=== PATIENT | female | born 1950 | race African-American/Black ===

== ENCOUNTER 2016-07-11 13:10 | Inpatient (IN) | payer OTHER ==
--- NOTE | 2016-07-11 13:26 | PDOC ---
History of Present Illness - General Stated Complaint: ABD PIN Time Seen by Provider: 07/11/16 13:25 - History of Present Illness Initial Comments: 07/11/16 14:08 The pt is a 65 year old female with a PMH of HIV, gastritis, renal stones who presents to ED complaining of severe abdominal pain that started an hour ago. The pain started suddenly when pt wa cleaning the house, it is located in epigastrium, 10/10, no radiation, no alleviating/aggravating symptoms. She also is complaining of nausea and weakness since her pain started. The pt had 2 BM today, non bloody. She denies chest pain, SOB, pain in the back, cough, fever, chills. She denies problems with urination, dysuria, increased frwquency, urgency. She denies numbness, paresthesia, headache. Past History - Past Medical History Allergies/Adverse Reactions: Allergies Allergy/AdvReac Type Severity Reaction Status Date / Time No Known Allergies Allergy Verified 07/11/16 13:56 Home Medications: Ambulatory Orders Elviteg/Sarah/Emtric/Tenofo Ala [Genvoya Tablet] 1 each PO DAILY 07/11/16 Gabapentin [Neurontin -] 300 mg PO Q8H 07/11/16 Losartan/Hydrochlorothiazide [Losartan-Hctz 100-25 mg Tab] 1 each PO DAILY 07/11 Non-Formulary 100 mg PO TID 07/11/16 Omeprazole 40 mg PO DAILY 07/11/16 Zolpidem Tartrate [Ambien] 10 mg PO HS 07/11/16 Review of Systems - Review of Systems Able to Perform ROS?: Yes Comments:: 07/11/16 14:14 REVIEW OF SYSTEMS CONSTITUTIONAL: generalized weakness Absent: fever, chills, diaphoresis, malaise, loss of appetite, weight change HEENT: Absent: rhinorrhea, nasal congestion, throat pain, throat swelling, difficulty swallowing, mouth swelling, ear pain, eye pain, visual changes CARDIOVASCULAR: Absent: chest pain, syncope, palpitations, irregular heart rate, lightheadedness , peripheral edema RESPIRATORY: Absent: cough, shortness of breath, dyspnea with exertion, orthopnea, wheezing, stridor, hemoptysis GASTROINTESTINAL: abdominal pain and nausea Absent: abdominal distension, vomiting, diarrhea, constipation, melena, hematochezia GENITOURINARY: Absent: dysuria, frequency, urgency, hesitancy, hematuria, flank pain, genital pain MUSCULOSKELETAL: Absent: myalgia, arthralgia, joint swelling, back pain, neck pain SKIN: Absent: rash, itching, pallor NEUROLOGIC: Absent: headache, focal weakness or paresthesias, dizziness, unsteady gait, seizure, mental status changes, bladder or bowel incontinence PSYCHIATRIC: Absent: anxiety, depression 07/11/16 14:15 Is the patient limited Liberian proficient: No ED Treatment Course - LABORATORY CBC & Chemistry Diagram: 07/11/16 13:30 07/11/16 13:30 Medical Decision Making - Medical Decision Making 07/11/16 14:15 The pt presents to Ed complaining of severe epigastric pain. Differential diagnosis include gastritis, gastric/duodenal ulcer, perforation of gastric ulcer, ACS, pancreatitis, colitis, aortic dissection. We ordered Morphine, f/u by Dilaulid, CBC, CMP, AKG, cardiac profile, Pepsid, LA , blood cx, UA, lipase, abdomen x ray 07/11/16 17:17 LA, Cr, BUN are elevated, she was given more Dilaulid. CXR and abd xry no acute pathology. We ordered CTA of abdomen/pelvis with contrast. The pt is still complaining of severe abdominal pain. *DC/Admit/Observation/Transfer Diagnosis at time of Disposition: Abdominal pain
[2016-07-11] MEDS ORDERED: FAMOTIDINE 20 MG/50 ML IVPB 50 ML IVPB ONE (13:38)
[2016-07-11] MEDS ORDERED: SODIUM CHLORIDE 1,000 ML IV STA (13:38)
[2016-07-11] MEDS ORDERED: morphine CARPU-JECT 4 MG/1 ML DISP.SYRIN IVPUSH ONE (13:47)
[2016-07-11 13:49] LABS: BASOPHIL 0.6 % (0-2.0); EOSINOPHIL 1.3 % (0-4.5); MCH 31.3 pg (25.7-33.7); MEAN CELL VOLUME 94.7 fl (80-96); MEAN PLT VOLUME 10.4 fl (7.5-11.1); NEUTROPHILS 50.3 % (42.8-82.8); PLATELET COUNT 95 K/MM3 (134-434); RDW 13.9 % (11.6-15.6); WHITE BLOOD COUNT 6.7 K/mm3 (4.0-10.0)
[2016-07-11] MEDS ORDERED: HYDROmorphone HCL CARPU-JECT 1 MG/1 ML DISP.SYRIN IVPB ONE ×2 (14:05→18:29)
--- NOTE | 2016-07-11 14:07 | PDOC ---
Attending Attestation - Resident Resident Name: Josiane Gutierrez - ED Attending Attestation I have performed the following: I have examined & evaluated the patient, The case was reviewed & discussed with the resident, I agree w/resident's findings & plan - HPI HPI: 07/11/16 14:08 65y F hx of HIV, HTN, presents with complaint of sudden onset of abdominal pain about 1 hr ago associated with nausea, without any vomiting, fever/chills, diarrhea, chest pain, sob, numbness/tingling of the extremity. no radaition of pain to back or to extremities. on exam the pt apperas uncomfortable, has mild epigastric tenderness, rest of abdomen is soft. consider possible acs, pancreatitis, gb disease, ?vascuar disease due to sudden onset including dissection, mesenteric ischemia 07/11/16 16:08 labs reviewed noted for elevated lactic acid level cr slightly elevated, possibel dehydration pt hydrated will obtain CTA abdomen to r/o mesentaeric ischemia/dissection ekg does show some TWI in lateral leads, q aves in V1, V2 trop pending - Physicial Exam PE: 07/16/16 09:10 see above - Medical Decision Making 07/16/16 09:10 see above Heart Score/ECG Review - ECG Impressions Comment:: 07/11/16 17:25 Twelve-lead EKG was performed and reviewed by me. There is normal sinus rhythm with a normal rate. Rate of 76 The intervals are normal. There is normal R wave progression TWI in ther lateral leads q waves in anterior leads no old ekg for comparison
[2016-07-11] MEDS ORDERED: HYDROmorphone HCL CARPU-JECT 1 MG/1 ML DISP.SYRIN ONE ×3 (14:08→18:31)
[2016-07-11 14:19] LABS: ALBUMIN 3.3 g/dl (3.4-5.0); ANION GAP 11 (8-16); CALCIUM 8.5 mg/dL (8.5-10.1); CO2 25 mmol/L (21-32); GLUCOSE,RANDOM 186 mg/dL (74-106)
[2016-07-11 14:23] LABS: ALK PHOS 101 U/L (45-117); BILIRUBIN,TOTAL 0.6 mg/dL (0.2-1.0); CREATININE 1.1 mg/dL (0.55-1.02); SGOT/AST 25 U/L (15-37); SGPT/ALT 19 U/L (12-78); TOT PROT 7.5 g/dl (6.4-8.2)
[2016-07-11 15:20] LABS: URINE APPEARANCE CLEAR; URINE BILIRUBIN NEGATIVE (NEGATIVE); URINE COLOR STRAW; URINE GLUCOSE (UA) 2+ (NEGATIVE); URINE KETONE NEGATIVE (NEGATIVE); URINE LEUK ESTERASE NEGATIVE (NEGATIVE); URINE NITRITE NEGATIVE (NEGATIVE); URINE PROTEIN NEGATIVE (NEGATIVE); URINE UROBILINOGEN NEGATIVE E.U./dl (0.2-1.0)
[2016-07-11 15:30] LABS: URINE BLOOD 1+ (NEGATIVE)
[2016-07-11 15:33] LABS: URINE HYALINE CAST 1 /lpf; URINE RBC 3 /hpf (0-3); URINE WBC <1 /hpf (3-5)
--- NOTE | 2016-07-11 15:35 | EKG ---
Test Reason : Blood Pressure : / mmHG Vent. Rate : 076 BPM Atrial Rate : 076 BPM P-R Int : 184 ms QRS Dur : 080 ms QT Int : 416 ms P-R-T Axes : 083 011 182 degrees QTc Int : 468 ms POOR DATA QUALITY, INTERPRETATION MAY BE ADVERSELY AFFECTED NORMAL SINUS RHYTHM POSSIBLE LEFT ATRIAL ENLARGEMENT SEPTAL INFARCT , AGE UNDETERMINED ABNORMAL ECG NO PREVIOUS ECGS AVAILABLE Confirmed by STANLEY PURDY, DIANA ([id number]) on 07/11/2016 3:35:04 PM Referred By: Confirmed By:DIANA ANGEL MD
[2016-07-11] MEDS ORDERED: HYDROmorphone HCL CARPU-JECT 2 MG/1 ML DISP.SYRIN IVPUSH ONE (16:21)
[2016-07-11 17:54] LABS: TROPONIN I < 0.02 ng/ml (0.00-0.05)
[2016-07-11] MEDS ORDERED: PIPERACILLIN/TAZOB 3.375 GM/50 ML PRE-DOCKED IVPB ONE (21:04)
[2016-07-11] MEDS ORDERED: PIPERACILLIN/TAZOB 3.375 GM 50 ML IVPB ONE (21:32)
--- NOTE | 2016-07-11 21:34 | PDOC ---
*Physical Exam - Vital Signs Last Vital Signs Temp Pulse Resp BP Pulse Ox 97.3 F L 79 19 167/101 96 07/11/16 15:33 07/11/16 18:35 07/11/16 18:35 07/11/16 18:35 07/11/16 18:35 ED Treatment Course - LABORATORY CBC & Chemistry Diagram: 07/11/16 13:30 07/11/16 13:30 - ADDITIONAL ORDERS Additional order review: Laboratory Results 07/11/16 07/11/16 07/11/16 15:43 15:32 15:10 Sodium Potassium Chloride Carbon Dioxide Anion Gap BUN Creatinine Creat Clearance w eGFR Random Glucose Lactic Acid 2.325 H* Calcium Total Bilirubin AST ALT Alkaline Phosphatase Creatine Kinase Cancelled CK-MB (CK-2) Troponin I Cancelled Total Protein Albumin Lipase Urine Color Straw Urine Appearance Clear Urine pH 7.0 Ur Specific [place] 1.013 Urine Protein Negative Urine Glucose (UA) 2+ H Urine Ketones Negative Urine Blood 1+ H Urine Nitrite Negative Urine Bilirubin Negative Urine Urobilinogen Negative Ur Leukocyte Esterase Negative Urine RBC 3 Urine WBC <1 Ur Epithelial Cells Rare Hyaline Casts 1 07/11/16 07/11/16 14:00 13:30 Sodium 142 Potassium 3.6 Chloride 106 Carbon Dioxide 25 Anion Gap 11 BUN 22 H Creatinine 1.1 H Creat Clearance w eGFR 50.01 Random Glucose 186 H Lactic Acid 2.257 H* Calcium 8.5 Total Bilirubin 0.6 AST 25 ALT 19 Alkaline Phosphatase 101 Creatine Kinase 275 H CK-MB (CK-2) 1.519 Troponin I < 0.02 Total Protein 7.5 Albumin 3.3 L Lipase 173 Urine Color Urine Appearance Urine pH Ur Specific [place] Urine Protein Urine Glucose (UA) Urine Ketones Urine Blood Urine Nitrite Urine Bilirubin Urine Urobilinogen Ur Leukocyte Esterase Urine RBC Urine WBC Ur Epithelial Cells Hyaline Casts 07/11/16 13:30 RBC 4.56 MCV 94.7 MCHC 33.0 RDW 13.9 MPV 10.4 Neutrophils % 50.3 Lymphocytes % 36.6 Monocytes % 11.2 H Eosinophils % 1.3 Basophils % 0.6 - Medications Given in the ED: ED Medications Discontinued Medications Generic Name Dose Route Start Last Admin Trade Name Freq PRN Reason Stop Dose Admin Diphenhydramine HCl 25 mg 07/11/16 20:17 07/11/16 20:35 Benadryl Injection - IVPB 07/11/16 20:18 25 mg ONCE ONE Administration Hydromorphone HCl 1 mg 07/11/16 14:05 07/11/16 14:14 Dilaudid Injection - IVPB 07/11/16 14:06 1 mg ONCE ONE Administration Hydromorphone HCl 1 mg 07/11/16 16:21 07/11/16 16:25 Dilaudid Injection - IVPUSH 07/11/16 16:22 1 mg ONCE ONE Administration Hydromorphone HCl 1 mg 07/11/16 18:29 07/11/16 18:35 Dilaudid Injection - IVPB 07/11/16 18:30 1 mg ONCE ONE Administration Famotidine/Sodium Chloride 50 mls @ 100 mls/hr 07/11/16 13:38 07/11/16 14:00 Pepcid 20 Mg Premixed Ivpb - IVPB 07/11/16 14:07 100 mls/hr ONCE ONE Administration Sodium Chloride 1,000 mls @ 1,000 mls/hr 07/11/16 13:38 07/11/16 14:00 Normal Saline - IV 07/11/16 14:37 1,000 mls/hr ASDIR STA Administration Morphine Sulfate 4 mg 07/11/16 13:47 07/11/16 13:40 Morphine Injection - IVPUSH 07/11/16 13:48 4 mg ONCE ONE Administration Medical Decision Making - Medical Decision Making 07/11/16 21:33 Sign-out received from outgoing Emergency Physician Dr. Burgess Pt interviewed and examined Ancillary studies reviewed Case discussed in detail with oncoming Emergency Physician including history, physical exam and ancillary studies. CBC, BMP 07/11/16 13:30 07/11/16 13:30 CMP Sodium 142 mmol/L (136-145) 07/11/16 13:30 Potassium 3.6 mmol/L (3.5-5.1) 07/11/16 13:30 Chloride 106 mmol/L (98-107) 07/11/16 13:30 Carbon Dioxide 25 mmol/L (21-32) 07/11/16 13:30 Anion Gap 11 (8-16) 07/11/16 13:30 BUN 22 mg/dL (7-18) H 07/11/16 13:30 Creatinine 1.1 mg/dL (0.55-1.02) H 07/11/16 13:30 Creat Clearance w eGFR 50.01 (>60) 07/11/16 13:30 Random Glucose 186 mg/dL (74-106) H 07/11/16 13:30 Lactic Acid 2.325 mmol/L (0.4-2.0) H* 07/11/16 15:32 Calcium 8.5 mg/dL (8.5-10.1) 07/11/16 13:30 Total Bilirubin 0.6 mg/dL (0.2-1.0) 07/11/16 13:30 AST 25 U/L (15-37) 07/11/16 13:30 ALT 19 U/L (12-78) 07/11/16 13:30 Alkaline Phosphatase 101 U/L (45-117) 07/11/16 13:30 Creatine Kinase Cancelled 07/11/16 15:43 CK-MB (CK-2) 1.519 ng/ml (0.5-3.6) 07/11/16 13:30 Troponin I Cancelled 07/11/16 15:43 Total Protein 7.5 g/dl (6.4-8.2) 07/11/16 13:30 Albumin 3.3 g/dl (3.4-5.0) L 07/11/16 13:30 Lipase 173 U/L (73-393) 07/11/16 13:30 CT scan demonstrates acute cholecystitis. Zosyn ordered. Case discussed with Dr. Talbot. Accepts to med/surg admission. Case discussed in detail with admitting physician including history, physical exam and ancillary studies. Admitting physician has assumed care for the patient, will follow all pending diagnostics and will complete the evaluation and treatment. *DC/Admit/Observation/Transfer Diagnosis at time of Disposition: Acute cholecystitis - Discharge Dispostion Condition at time of disposition: Stable Admit: Yes
[2016-07-11] MEDS ORDERED: HYDROmorphone HCL CARPU-JECT 2 MG/1 ML DISP.SYRIN IVPB PRN (21:59)
[2016-07-11] MEDS ORDERED: ONDANSETRON 4 MG/2 ML VIAL IVPB PRN (23:01)
[2016-07-11] MEDS ORDERED: hydrALAZINE HCL 20 MG/ML VIAL IVPUSH PRN (23:11)
[2016-07-11] MEDS ORDERED: DEXTROSE 5%-NORMAL SALINE 1,000 ML IV SCH (23:15)
--- NOTE | 2016-07-11 23:17 | HP ---
<Shanita Fong - Last Filed: 07/11/16 23:38> CHIEF COMPLAINT: Abdominal pain PCP:-- HISTORY OF PRESENT ILLNESS: The patient is a 65 year old female who presents to the ED with CC of abdominal pain, 8/10 in intensity,localized to the epigastric area, constant, that began around 1 pm today. Patient appears to be in severe pain and history is obtained partially from son. Patient denies any prior episodes of abdominal pain before. Patient denies n, v, or diarrhea, fever. Patient denies taking any medication for pain relief. PMH: HIV, Peripheral neuropathy, HTN PSH: hysterectomy Allergies: None Social hx: Lives at home, denies any toxic habits Fam Hx: No hx of CAD or cancer Recent Travel: None Allergies No Known Allergies Allergy (Verified 07/11/16 13:56) HOME MEDICATIONS: Home Medications Medication Instructions Recorded Elviteg/Sarah/Emtric/Tenofo Ala 1 each PO DAILY 07/11/16 [Genvoya Tablet] Gabapentin [Neurontin -] 300 mg PO Q8H 07/11/16 Losartan/Hydrochlorothiazide 1 each PO DAILY 07/11/16 [Losartan-Hctz 100-25 mg Tab] Non-Formulary 100 mg PO TID 07/11/16 Omeprazole 40 mg PO DAILY 07/11/16 Zolpidem Tartrate [Ambien] 10 mg PO HS 07/11/16 REVIEW OF SYSTEMS CONSTITUTIONAL: Absent: fever, chills, diaphoresis, generalized weakness, malaise, loss of appetite, weight change HEENT: Absent: rhinorrhea, nasal congestion, throat pain, throat swelling, difficulty swallowing, mouth swelling, ear pain, eye pain, visual changes CARDIOVASCULAR: Absent: chest pain, syncope, palpitations, irregular heart rate, lightheadedness , peripheral edema RESPIRATORY: Absent: cough, shortness of breath, dyspnea with exertion, orthopnea, wheezing, stridor, hemoptysis GASTROINTESTINAL: +abdominal pain. Absent: abdominal distension, nausea, vomiting, diarrhea, constipation, melena, hematochezia GENITOURINARY: Absent: dysuria, frequency, urgency, hesitancy, hematuria, flank pain, genital pain MUSCULOSKELETAL: Absent: myalgia, arthralgia, joint swelling, back pain, neck pain SKIN: Absent: rash, itching, pallor HEMATOLOGIC/IMMUNOLOGIC: Absent: easy bleeding, easy bruising, lymphadenopathy, frequent infections ENDOCRINE: Absent: unexplained weight gain, unexplained weight loss, heat intolerance, cold intolerance NEUROLOGIC: Absent: headache, focal weakness or paresthesias, dizziness, unsteady gait, seizure, mental status changes, bladder or bowel incontinence PSYCHIATRIC: Absent: anxiety, depression, suicidal or homicidal ideation, hallucinations. Laboratory Results - last 24 hr 07/11/16 07/11/16 07/11/16 13:30 13:30 14:00 WBC 6.7 RBC 4.56 Hgb 14.2 Hct 43.1 MCV 94.7 MCHC 33.0 RDW 13.9 Plt Count 95 L MPV 10.4 Neutrophils % 50.3 Lymphocytes % 36.6 Monocytes % 11.2 H Eosinophils % 1.3 Basophils % 0.6 Sodium 142 Potassium 3.6 Chloride 106 Carbon Dioxide 25 Anion Gap 11 BUN 22 H Creatinine 1.1 H Creat Clearance w eGFR 50.01 Random Glucose 186 H Lactic Acid 2.257 H* Calcium 8.5 Total Bilirubin 0.6 AST 25 ALT 19 Alkaline Phosphatase 101 Creatine Kinase 275 H CK-MB (CK-2) 1.519 Troponin I < 0.02 Total Protein 7.5 Albumin 3.3 L Lipase 173 Urine Color Urine Appearance Urine pH Ur Specific [place] Urine Protein Urine Glucose (UA) Urine Ketones Urine Blood Urine Nitrite Urine Bilirubin Urine Urobilinogen Ur Leukocyte Esterase Urine RBC Urine WBC Ur Epithelial Cells Hyaline Casts 07/11/16 07/11/16 07/11/16 15:10 15:32 15:43 WBC RBC Hgb Hct MCV MCHC RDW Plt Count MPV Neutrophils % Lymphocytes % Monocytes % Eosinophils % Basophils % Sodium Potassium Chloride Carbon Dioxide Anion Gap BUN Creatinine Creat Clearance w eGFR Random Glucose Lactic Acid 2.325 H* Calcium Total Bilirubin AST ALT Alkaline Phosphatase Creatine Kinase Cancelled CK-MB (CK-2) Troponin I Cancelled Total Protein Albumin Lipase Urine Color Straw Urine Appearance Clear Urine pH 7.0 Ur Specific [place] 1.013 Urine Protein Negative Urine Glucose (UA) 2+ H Urine Ketones Negative Urine Blood 1+ H Urine Nitrite Negative Urine Bilirubin Negative Urine Urobilinogen Negative Ur Leukocyte Esterase Negative Urine RBC 3 Urine WBC <1 Ur Epithelial Cells Rare Hyaline Casts 1 PHYSICAL EXAMINATION GENERAL: Awake, alert, and fully oriented, in no acute distress. HEAD: Normal with no signs of trauma. EYES: Pupils equal, round and reactive to light, extraocular movements intact, sclera anicteric, conjunctiva clear. No lid lag. EARS, NOSE, THROAT: Ears normal, nares patent, oropharynx clear without exudates. Moist mucous membranes. NECK: Normal range of motion, supple without lymphadenopathy, JVD, or masses. LUNGS: Breath sounds equal, clear to auscultation bilaterally. No wheezes, and no crackles. No accessory muscle use. HEART: Regular rate and rhythm, normal S1 and S2 without murmur, rub or gallop. ABDOMEN: Soft, nontender, not distended, normoactive bowel sounds, no guarding, no rebound, no masses. No hepatomegaly or splenomegaly. MUSCULOSKELETAL: Normal range of motion at all joints. No bony deformities or tenderness. No CVA tenderness. UPPER EXTREMITIES: 2+ pulses, warm, well-perfused. No cyanosis. No clubbing. No peripheral edema. LOWER EXTREMITIES: 2+ pulses, warm, well-perfused. No calf tenderness. No peripheral edema. NEUROLOGICAL: Cranial nerves II-XII intact. Normal speech. Normal gait. PSYCHIATRIC: Cooperative. Good eye contact. Appropriate mood and affect. SKIN: Warm, dry, normal turgor, no rashes or lesions noted, normal capillary refill. PROBLEM LIST: Abdominal pain Radiologic evidence of acute cholecystitis Prerenal azotemia Elevated lactic acid levels Thrombocytopenia Hx of HIV Hx of HTN ASSESSMENT/PLAN: 65 yo F who presents to the ED complaining of abdominal pain. 1.) Abdominal pain and CT evidence of acute cholecystitis. Patient is hemodynamically stable with no signs of sepsis(lactic acid elevation is most likely attributed to antiretroviral medications). Plan: -IV fluids -Pain control with IV Dilaudid PRN -NPO -IV antibiotics -Surgical evaluation for possible cholecystecomy -Follow up official CT scan report 2.) HX of HIV Stable with most recent undetectable viral load as per family Plan: - Continue Genvoya 3.) HTN Uncontrolled, partially secondary to severe pain. Plan: - Hydralazine PRN - Will reinstate oral medications when diet is restarted 4.) GI PPx Plan: -IV pepcid 5.)DVT PPx Plan: -early ambulation and SCDs Documentation prepared by Shanita Fong, acting as medical legal investigator for Claudia Talbot MD. Problem List - Problem (1) Acute cholecystitis Code(s): K81.0 - ACUTE CHOLECYSTITIS (2) Abdominal pain Code(s): R10.9 - UNSPECIFIED ABDOMINAL PAIN (3) Prerenal azotemia Code(s): R79.89 - OTHER SPECIFIED ABNORMAL FINDINGS OF BLOOD CHEMISTRY (4) Elevated lactic acid level Code(s): R79.89 - OTHER SPECIFIED ABNORMAL FINDINGS OF BLOOD CHEMISTRY (5) Thrombocytopenia Code(s): D69.6 - THROMBOCYTOPENIA, UNSPECIFIED (6) HIV (human immunodeficiency virus infection) Code(s): Z21 - ASYMPTOMATIC HUMAN IMMUNODEFICIENCY VIRUS INFECTION STATUS (7) HTN (hypertension) Code(s): I10 - ESSENTIAL (PRIMARY) HYPERTENSION <Claudia Talbot - Last Filed: 07/12/16 06:24> Physical exam HEENT PERRLA, normocephalic, atraumatic CVS S1 S2 + , no MRG , RRR RS CTA b/l Abd soft, RUQ and epigastric tenderness SKIN dry , normal turgor WNL EXT no edema , no clubbing , no cyanosis Visit type - Emergency Visit Emergency Visit: Yes ED Registration Date: 07/11/16 Care time: The patient presented to the Emergency Department on the above date and was hospitalized for further evaluation of their emergent condition. - New Patient This patient is new to me today: Yes Date on this admission: 07/12/16 - Critical Care Critical Care patient: No
[2016-07-11] MEDS: GABAPENTIN 300 MG CAPSULE (FP) PO SCH (23:27)
[2016-07-12] MEDS ORDERED: PIPERACILLIN/TAZOB 3.375 GM/50 ML PRE-DOCKED IVPB ONE (02:00)
[2016-07-12] MEDS: GABAPENTIN 300 MG CAPSULE (FP) PO SCH ×3 (06:45→21:18)
[2016-07-12 08:49] LABS: BASOPHIL 0.4 % (0-2.0); EOSINOPHIL 0.4 % (0-4.5); MCH 31.2 pg (25.7-33.7); MEAN CELL VOLUME 94.5 fl (80-96); MEAN PLT VOLUME 10.2 fl (7.5-11.1); NEUTROPHILS 66.7 % (42.8-82.8); PLATELET COUNT 91 K/MM3 (134-434); RDW 13.6 % (11.6-15.6); WHITE BLOOD COUNT 7.6 K/mm3 (4.0-10.0)
[2016-07-12 09:00] LABS: ALBUMIN 3.2 g/dl (3.4-5.0); AMYLASE 215 U/L (25-115); ANION GAP 11 (8-16); CALCIUM 7.8 mg/dL (8.5-10.1); CO2 25 mmol/L (21-32); GLUCOSE,RANDOM 121 mg/dL (74-106); SGOT/AST 18 U/L (15-37); SGPT/ALT 20 U/L (12-78)
[2016-07-12] MEDS ORDERED: PIPERACILLIN/TAZOB 3.375 GM 50 ML IVPB ONE (09:00)
[2016-07-12 09:02] LABS: ALK PHOS 87 U/L (45-117); BILIRUBIN,TOTAL 0.6 mg/dL (0.2-1.0); TOT PROT 7.2 g/dl (6.4-8.2)
--- NOTE | 2016-07-12 10:27 | CONSULT ---
Consult Consult Specialty:: Surgery Referred by:: HospitalistAntione Reason for Consultation:: Abdominal pain , cholelithiasis. - History of Present Illness Chief Complaint: Epigastric abdominal pain since yesterday, severe ,not relieved. She has had similar pain in the past, but not so severe. - History Source History Provided By: Patient - Past Medical History Cardio/Vascular: Yes: HTN Infectious Disease: Yes: AIDS, HIV - Past Surgical History Past Surgical History: Yes: Hysterectomy - Alcohol/Substance Use Hx Alcohol Use: No - Smoking History Smoking history: Current every day smoker Aproximately how many cigarettes per day: 2 Home Medications - Allergies Allergies/Adverse Reactions: Allergies Allergy/AdvReac Type Severity Reaction Status Date / Time No Known Allergies Allergy Verified 07/11/16 13:56 - Home Medications Home Medications: Ambulatory Orders Elviteg/Sarah/Emtric/Tenofo Ala [Genvoya Tablet] 1 each PO DAILY 07/11/16 Gabapentin [Neurontin -] 300 mg PO Q8H 07/11/16 Losartan/Hydrochlorothiazide [Losartan-Hctz 100-25 mg Tab] 1 each PO DAILY 07/11 Non-Formulary 100 mg PO TID 07/11/16 Omeprazole 40 mg PO DAILY 07/11/16 Zolpidem Tartrate [Ambien] 10 mg PO HS 07/11/16 Physical Exam Vital Signs: Vital Signs Temperature 98.9 F 07/12/16 06:00 Pulse Rate 75 07/12/16 06:00 Respiratory Rate 20 07/12/16 06:00 Blood Pressure 131/78 07/12/16 06:00 O2 Sat by Pulse Oximetry (%) 97 07/12/16 02:28 Constitutional: Yes: Obese Gastrointestinal: Yes: Tenderness, Epigastrium Labs: CBC, BMP 07/12/16 08:05 07/12/16 08:05 Imaging - Results X-ray: Report Reviewed, Image Reviewed Cat Scan: Report Reviewed, Image Reviewed Problem List - Problems (1) Abdominal pain, acute, epigastric Code(s): R10.13 - EPIGASTRIC PAIN (2) Cholelithiasis Code(s): K80.20 - CALCULUS OF GALLBLADDER W/O CHOLECYSTITIS W/O OBSTRUCTION Qualifiers: Cholelithiasis location: gallbladder Cholecystitis acuity: acute Biliary obstruction: without biliary obstruction (3) HTN (hypertension) Code(s): I10 - ESSENTIAL (PRIMARY) HYPERTENSION Assessment/Plan Cholelithiasis, with abdominal pain, cholecystitis. HIV , Hypertension. Plan : :laparoscopic cholecystectomy. Patient is explained with risks, benefits and complications.
[2016-07-12 12:06] LABS: TROPONIN I < 0.02 ng/ml (0.00-0.05)
[2016-07-12] MEDS ORDERED: PIPERACILLIN/TAZOB 3.375 GM/50 ML PRE-DOCKED IVPB SCH ×2 (12:15→18:00)
--- NOTE | 2016-07-12 12:30 | PN ---
Progress Note, Physician - Current Medication List Current Medications: Active Medications Gabapentin (Neurontin -) 300 mg PO TID JIMBO Last Admin: 07/12/16 06:45 Dose: 300 mg Hydralazine HCl (Apresoline Injection -) 10 mg IVPUSH Q6H PRN PRN Reason: HYPERTENSION Hydromorphone HCl (Dilaudid Injection -) 2 mg IVPB Q6H PRN PRN Reason: PAIN Last Admin: 07/11/16 22:09 Dose: 2 mg Dextrose/Sodium Chloride (D5-Ns -) 1,000 mls @ 100 mls/hr IV ASDIR JIMBO Last Admin: 07/12/16 02:00 Dose: 100 mls/hr Non-Formulary Medication (Elviteg/Sarah/Emtric/Tenofo Ala [Genvoya Tablet]) 1 each PO DAILY JIMBO Ondansetron HCl (Zofran Injection) 4 mg IVPB Q6H PRN PRN Reason: NAUSEA Piperacillin Sod/Tazobactam Sod (Zosyn 3.375gm Ivpb (Pre-Docked)) 3.375 gm IVPB Q8H-IV JIMBO PRN Reason: Protocol - Objective Vital Signs: Vital Signs Temperature 99.2 F 07/12/16 09:00 Pulse Rate 76 07/12/16 09:00 Respiratory Rate 20 07/12/16 09:00 Blood Pressure 160/92 07/12/16 09:00 O2 Sat by Pulse Oximetry (%) 97 07/12/16 09:00 Labs: CBC, BMP 07/12/16 08:05 07/12/16 08:05 Problem List - Problems (1) Abdominal pain, acute, epigastric Code(s): R10.13 - EPIGASTRIC PAIN (2) Cholelithiasis Code(s): K80.20 - CALCULUS OF GALLBLADDER W/O CHOLECYSTITIS W/O OBSTRUCTION Qualifiers: Cholelithiasis location: gallbladder Cholecystitis acuity: acute Biliary obstruction: without biliary obstruction (3) HTN (hypertension) Code(s): I10 - ESSENTIAL (PRIMARY) HYPERTENSION Assessment/Plan Ultrasound of gallbladder shows a normal size bile duct, with multiple gall stones. A HIDA scan is recommended and requested. Continue antibiotics, NPO , Iv fluids.
--- NOTE | 2016-07-12 12:37 | PN ---
Teaching Attending Note Name of Resident: Seamus Grover ATTENDING PHYSICIAN STATEMENT I saw and evaluated the patient. I reviewed the resident's note and discussed the case with the resident. I agree with the resident's findings and plan as documented. SUBJECTIVE: seen and evaluated at the bedside OBJECTIVE: RUQ tenderness, not ill appearing ASSESSMENT AND PLAN: 65 year old woman with HIV, Peripheral neuropathy, HTN admitted for billiary colic -pt has RUQ pain and tenderness with distended gall bladder and stones -no fever, elevated WBC, or pericolecystic fluid so no signs of active infection -no need for abx -surgery consult appreciated; for lap rehana but will need pre-op eval with stress test given Q waves and flipped T waves on EKG
[2016-07-12] MEDS ORDERED: DIPYRIDAMOLE 50 MG/10 ML VIAL IVPB ONE (13:30)
[2016-07-12] MEDS ORDERED: DEXTROSE 5% IVPB ONE (14:30)
[2016-07-12] MEDS ORDERED: DIPYRIDAMOLE STRESS TEST IVPB ONE (14:30)
[2016-07-12] MEDS ORDERED: WATER IVPB ONE (14:30)
[2016-07-12 15:11] VITALS: BP 140/78; PULSE 70; TEMP 98.6
--- NOTE | 2016-07-12 16:02 | DS ---
Physical Exam: SUBJECTIVE: Patient seen and examined Pt feels well No s/s of acute distress NO fever or chills no n/v no abdominal pain OBJECTIVE: Vital Signs Period Temp Pulse Resp BP Sys/Francisco Pulse Ox Last 24 Hr 98.5 F-99.2 F 67-78 16-20 131-160/78-92 97-97 PHYSICAL EXAM GENERAL: Awake, alert, and fully oriented, in no acute distress. LUNGS: Breath sounds equal, clear to auscultation bilaterally. No wheezes, and no crackles. No accessory muscle use. HEART: Regular rate and rhythm, normal S1 and S2 without murmur, rub or gallop. ABDOMEN: Soft, nontender, not distended, normoactive bowel sounds, no guarding, no rebound, no masses. No hepatomegaly or splenomegaly. MUSCULOSKELETAL: Normal range of motion at all joints. No bony deformities or tenderness. No CVA tenderness. UPPER EXTREMITIES: 2+ pulses, warm, well-perfused. No cyanosis. No clubbing. No peripheral edema. LOWER EXTREMITIES: 2+ pulses, warm, well-perfused. No calf tenderness. No peripheral edema. NEUROLOGICAL:Normal speech. Normal gait. PSYCHIATRIC: Cooperative. Good eye contact. Appropriate mood and affect. SKIN: Warm, dry, normal turgor, no rashes or lesions noted, normal capillary refill. . LABS Laboratory Results - last 24 hr 07/11/16 07/12/16 07/12/16 23:45 08:05 08:05 WBC 7.6 RBC 4.27 Hgb 13.3 Hct 40.3 MCV 94.5 MCHC 33.0 RDW 13.6 Plt Count 91 L MPV 10.2 Neutrophils % 66.7 D Lymphocytes % 23.2 D Monocytes % 9.3 Eosinophils % 0.4 Basophils % 0.4 Sodium 142 Potassium 3.3 L Chloride 106 Carbon Dioxide 25 Anion Gap 11 BUN 16 D Creatinine 1.0 Creat Clearance w eGFR 55.82 Random Glucose 121 H D Lactic Acid 2.327 H* Calcium 7.8 L Total Bilirubin 0.6 AST 18 D ALT 20 Alkaline Phosphatase 87 Creatine Kinase 213 H D Troponin I < 0.02 Total Protein 7.2 Albumin 3.2 L Total Amylase 215 H Lipase 317 07/12/16 07/12/16 09:25 10:35 WBC RBC Hgb Hct MCV MCHC RDW Plt Count MPV Neutrophils % Lymphocytes % Monocytes % Eosinophils % Basophils % Sodium Potassium Chloride Carbon Dioxide Anion Gap BUN Creatinine Creat Clearance w eGFR Random Glucose Lactic Acid 1.174 Calcium Total Bilirubin AST ALT Alkaline Phosphatase Creatine Kinase Cancelled Troponin I Cancelled Total Protein Albumin Total Amylase Lipase HOSPITAL COURSE: Date of Admission:07/11/16 The patient is a 65 year old female who presents to the ED with CC of abdominal pain, 8/10 in intensity,localized to the epigastric area, constant, that began around 1 pm today. Patient appears to be in severe pain and history is obtained partially from son. Patient denies any prior episodes of abdominal pain before. Patient denies n, v, or diarrhea, fever. Patient denies taking any medication for pain relief. Pt came in with abdominal pain, pt was found to have Cholelithiasis. Pt was scheduled for Laparoscopic Cholecystectomy but surgery was cancelled due to abnormal ekg. Troponins were negative time 2. Echo showed normal LV size and function, no wall motion abnormalities. Stress test was negative. Since surgery could not be done until mid next week. Pt has an appointment on Friday afternoon with Dr Rodriguez to schedule the surgery as outpatient. Date of Discharge: 07/12/16 Minutes to complete discharge: 35 Discharge Summary Reason For Visit: ACUTE CHOLECYSTITIS Current Active Problems Abdominal pain, acute, epigastric (Acute) Acute cholecystitis (Acute) Cholelithiasis (Acute) Elevated lactic acid level (Acute) HIV (human immunodeficiency virus infection) (Acute) HTN (hypertension) (Acute) Prerenal azotemia (Acute) Thrombocytopenia (Acute) Condition: Stable - Instructions Diet, Activity, Other Instructions: Discharge Home resume low fat, low spice diet. resume home activity resume home medication FOLLOW UP WITH DR RODRIGUEZ, SURGERY BY FRIDAY TO SET UP WITH SURGERY (CHOLECYSTECTOMY ) You have an appointment with Dr Rodriguez on FridayJuly 15 at 4:30PM Address: [address] [place] [address] Bring Insurance card If you start having fever, chills, nausea, vomiting, severe abdominal pain, dizziness and confusion, chest pain, palpiatation and shortness please return to the emergency department. Referrals: Isaac Rodriguez MD [Staff Physician] - Disposition: HOME - Home Medications Comprehensive Discharge Medication List: Ambulatory Orders Elviteg/Sarah/Emtric/Tenofo Ala [Genvoya Tablet] 1 each PO DAILY 07/11/16 Gabapentin [Neurontin -] 300 mg PO Q8H 07/11/16 Losartan/Hydrochlorothiazide [Losartan-Hctz 100-25 mg Tab] 1 each PO DAILY 07/11 Non-Formulary 100 mg PO TID 07/11/16 Omeprazole 40 mg PO DAILY 07/11/16 Zolpidem Tartrate [Ambien] 10 mg PO HS 07/11/16 This patient is new to me today: Yes Date on this admission: 08/20/16 Emergency Visit: No Critical Care patient: No - Discharge Referral Referred to [facility] No
[2016-07-12] MEDS ORDERED: POTASSIUM CHLORIDE 40 MEQ/30 ML UNIT DOSE CUP PO ONE (16:05)
--- NOTE | 2016-07-13 12:27 | EKG ---
Test Reason : Blood Pressure : / mmHG Vent. Rate : 071 BPM Atrial Rate : 071 BPM P-R Int : 150 ms QRS Dur : 084 ms QT Int : 442 ms P-R-T Axes : 074 035 114 degrees QTc Int : 480 ms NORMAL SINUS RHYTHM POSSIBLE LEFT ATRIAL ENLARGEMENT T WAVE ABNORMALITY, CONSIDER ANTEROLATERAL ISCHEMIA PROLONGED QT ABNORMAL ECG WHEN COMPARED WITH ECG OF 11-JUL-2016 14:17, CRITERIA FOR SEPTAL INFARCT ARE NO LONGER PRESENT T WAVE INVERSION NO LONGER EVIDENT IN INFERIOR LEADS Confirmed by DIANA ANGEL MD ([id number]) on 07/13/2016 12:27:11 PM Referred By: PATIENCE AKHTAR Confirmed By:DIANA ANGEL MD
== END 2016-07-12 21:34 | disposition home or self-care (01) ==
LOC: JER 13:10 → JERBED 21:34 → UNDOADMIN 23:10 → J8W 07-12 00:51 → JERBED 07-12 00:51
PROVIDERS: ADMIT Internal Medicine; ATTEND Internal Medicine
DX: K80.00 Calculus of gallbladder with acute cholecystitis without obstruction (principal); I10 Essential (primary) hypertension; G62.89 Other specified polyneuropathies; Z21 Asymptomatic human immunodeficiency virus [HIV] infection status; R79.89 Other specified abnormal findings of blood chemistry; D69.6 Thrombocytopenia, unspecified
CPT/HCPCS: 36415; 71010-TC; 74020-TC; 74174-TC; 76705-TC; 78452-TC; 80053; 81003; 81015; 82150; 82550; 82553; 83605; 83690; 84484; 85025; 87040; 93005; 93010; 93017; 93306-TC; 99285-25; A9502; J1245

== ENCOUNTER 2016-07-16 09:39 | Day surgery (SDC) | payer OTHER ==
[2016-07-15 15:09] VITALS: BMI 29.0
--- NOTE | 2016-07-16 10:28 | HP ---
History & Physical Update - History History: No Change - Physical Physical: No Change - Assessment Assessment: No Change - Plan Plan: No Change
[2016-07-16] MEDS ORDERED: BUPIVACAINE HCL/PF 0.5% (5MG/ML) 10 ML VIAL ONE (10:34)
[2016-07-16] MEDS ORDERED: ROCURONIUM BROMIDE 50 MG/5 ML VIAL ONE (10:48)
[2016-07-16] MEDS ORDERED: PROPOFOL 20 ML ONE (10:48)
[2016-07-16] MEDS ORDERED: MIDAZOLAM HCL 2 MG/2 ML SINGLE DOSE VIAL ONE (10:48)
[2016-07-16] MEDS ORDERED: LIDOCAINE HCL 2% (20ML MULTI-DOSE VIAL) NR ONE (10:48)
--- NOTE | 2016-07-16 10:53 | OP ---
Operative Note - Note: Operative Date: 07/16/16 Pre-Operative Diagnosis: Cholelithiassis, with cholecystitis,. hypertension ,. HIV,. Abdominal pain. Operation: Laparoscopic cholecystectomy, extensive lysis of adhesions. Findings: Liver cirrhosis, diffusely nodular liver. Extensive omental adhesions around the gallbladder, stomach and duodenum also adherent to the liver and gall bladder. Gallbladder and cystic duct with calculii. Post-Operative Diagnosis: Other (Extensive omental adhesions, and adhesion of stomach and duodenum.) Surgeon: Isaac Mckeon Anesthesiologist/BUSHLER: Bernadette Bonds Anesthesia: General Specimens Removed: Gallbladder Estimated Blood Loss (mls): 10 Operative Report Dictated: Yes
[2016-07-16] MEDS ORDERED: ceFAZolin SODIUM 1 GM VIAL IVPB ONE (11:08)
[2016-07-16] MEDS ORDERED: DEXAMETHASONE SOD PHOSPHATE 4 MG/1 ML VIAL ONE (11:25)
[2016-07-16] MEDS ORDERED: ceFAZolin SODIUM 1 GM VIAL ONE (11:26)
[2016-07-16] MEDS ORDERED: NEOSTIGMINE METHYLSULFATE 0.5 MG/ML - 10 ML MDV ONE (11:48)
[2016-07-16] MEDS ORDERED: GLYCOPYRROLATE 0.2 MG/1 ML VIAL ONE (11:48)
[2016-07-16] MEDS ORDERED: BUPIVACAINE HCL/PF 0.5% (5MG/ML) 10 ML VIAL IJ ONE (11:56)
[2016-07-16] MEDS ORDERED: ONDANSETRON 4 MG/2 ML VIAL IVPUSH PRN (12:16)
[2016-07-16] MEDS ORDERED: oxyCODONE HCL 5 MG TABLET PO PRN (12:16)
[2016-07-16] MEDS ORDERED: ACETAMINOPHEN 1000 MG/100 ML VIAL (NON FORMULARY) IVPB PRN (12:17)
[2016-07-16] MEDS ORDERED: LACTATED RINGERS SOLUTION 1,000 ML IV SCH (12:30)
--- NOTE | 2016-07-16 12:45 | SURG ---
[id number]: Cholelithiassis with cholecystitis, hypertension, HIV Procedure: Laparoscopic cholecystectomy, extensive lysis of adhesions. I was present for the entirety of the operative procedure. For further detail, please refer to operative report. <Donald Tony - Last Filed: 07/16/16 12:44> I was present for the entirety of the operative procedure. For further detail, please refer to operative report. Surgeon: Donald Tony RPA, was scrubbed as the surgery assistant for the procedure. He was involved in the operating room with this patient. The patient was not admitted from the emergency room for this visit, and was admitted from my office. <Isaac Mckeon - Last Filed: 07/19/16 09:56> Visit type - Case Type Case Type: ED Admission - Emergency Emergency Visit: Yes Care time: The patient presented to the Emergency Department on the above date and was hospitalized for further evaluation of their emergent condition. - New patient This patient is new to me today: Yes Date on this admission: 07/16/16 <Donald Tony - Last Filed: 07/16/16 12:44>
[2016-07-16 14:20] VITALS: TEMP 97.9
[2016-07-16] MEDS ORDERED: oxyCODONE HCL 5 MG TABLET ONE (16:07)
[2016-07-16] MEDS ORDERED: oxyCODONE HCL 5 MG TABLET PO ONE (16:10)
[2016-07-16 17:29] VITALS: BP 160/80; PULSE 74
--- NOTE | 2016-07-17 12:45 | OP ---
DATE OF OPERATION: 07/16/2016 PREOPERATIVE DIAGNOSES: Cholelithiasis with abdominal pain and cholecystitis, human immunodeficiency virus, hypertension and peritoneal adhesions. POSTOPERATIVE DIAGNOSES: Cholelithiasis with abdominal pain and cholecystitis, human immunodeficiency virus, hypertension and peritoneal adhesions. OPERATIVE PROCEDURE: Laparoscopic cholecystectomy and lysis of adhesions. SURGERY: Davis Mckeon MD CLOTH EDGE SINGER: BHAVYA Simon ANESTHESIA: General anesthesia. ANESTHESIOLOGIST: Bernadette Bonds MD OPERATIVE DESCRIPTION: This 65-year-old woman was admitted with abdominal pain. Found to have cholelithiasis. Was referred in for a laparoscopic cholecystectomy. She is HIV positive and a history of hypertension and obesity. The abdomen was painted and draped after general anesthesia was administered. Timeout was called. Patient was given antibiotics. An incision was made in the infraumbilical portion of the umbilicus. This was deepened inside the skin, subcutaneous tissue, and to the linea alba. The peritoneum was incised and a 10-to-12-mm laparoscopic trocar of the Rehan type was introduced into the abdominal cavity. The abdomen was inflated with carbon dioxide at 6 L/minute to a maximal intraabdominal pressure of 15 mmHg. A 5-mm camera was introduced into the abdominal cavity. Under direct vision, two 5-mm trocars were inserted in the right upper quadrant of the abdomen, 1 along the midclavicular line, another on the anterior axillary line. A 3rd trocar was inserted in the midline in subxiphoid area. This was also a 5-mm diameter and this entered the abdominal cavity to the right of the falciform ligament. All 3 were noted entering the abdominal cavity without any problems. The liver was then inspected and was extensively nodular, suggestive of liver cirrhosis. However, there was no evidence of portal hypertension in the omentum and anterior abdominal wall. The gallbladder was then completely covered with omentum. The fundus of the gallbladder was visualized and grasped at the fundus with the grasper through the lateral 5-mm port site. This was retracted cephalad. With sharp and blunt dissection as well as using the Harmonic scalpel and electrocautery, the adhesions of the peritoneum and omentum around the gallbladder were lysed all the way to the infundibulum of the gallbladder. The infundibulum of the gallbladder was then grasped with another grasper through the medial 5-mm port site. The liver and stomach were also adherent as well as the duodenum was adherent to the liver. This was carefully released to expose the cystic artery and the cystic duct which were then divided between clips. The peritoneal reflection on either side of the gallbladder was then incised and the gallbladder dissected out of the gallbladder bed using the Harmonic scalpel. The cholecystectomy was thus completed. An EndoCatch was then introduced through the umbilical port, the gallbladder placed in the EndoCatch and retrieved out of the abdominal cavity. Specimen was sent to Pathology. There were multiple stones in the cystic duct which were evacuated as well. The gallbladder fossa was then thoroughly irrigated with normal saline. There was no bleeding, no bile leak. The gallbladder bed was clear. Hemostasis in the field was satisfactory. All fluid was evacuated. The instruments were then withdrawn under direct vision. The linea alba in the midline was approximated with interrupted and [id number] 2-0 Vicryl sutures. Skin approximated with buried interrupted 4-0 Biosyn sutures. Sponge count, instrument count were correct. Estimated blood loss was 25 mL. Patient tolerated the procedure well, was extubated, and sent to the recovery room in satisfactory and stable condition. Latasha [id number]
--- NOTE | 2016-07-17 15:04 | PATH ---
Surgical Pathology Report Patient Name: ALEKS FERREIRA [facility]. Rec. #: [id number] /Age/Gender: 1950 (Age: 65) / F Account: [id number] Location: [facility] SURGICAL Taken: 07/16/2016 Received: 07/16/2016 Reported: 07/17/2016 Physicians: Davis Mckeon M.D. Specimen(s) Received GALLBLADDER Clinical History Cholelithiasis, acute cholecystitis Final Diagnosis GALLBLADDER, CHOLECYSTECTOMY: ACUTE AND CHRONIC CHOLECYSTITIS, CHOLELITHIASIS. Electronically Signed Jose Lei M.D. Gross Description Received in formalin, labeled "gallbladder" is a 8.0 x 3.5 x 2.0 cm gallbladder with a 0.2 cm in length portion of cystic duct attached. The outer surface is pelaez-pink and varies from smooth to shaggy. The lumen contains red blood as well as multiple green, spherical choleliths ranging from 0.1-0.4 cm in greatest dimension. The mucosa is hyperemic. The wall of the gallbladder ranges from 0.1-0.4 cm in thickness. Information Assurance sections are submitted in one cassette. /07/16/201607/16/2016
== END 2016-07-16 17:15 | disposition home or self-care (01) ==
LOC: JASU-SURG 09:39
PROVIDERS: ATTEND Specialist
PROC: 0FT44ZZ Resection of Gallbladder, Percutaneous Endoscopic Approach (ICD-10-PCS; principal; 2016-07-16 10:30)
DX: K80.10 Calculus of gallbladder with chronic cholecystitis without obstruction (principal); B20 Human immunodeficiency virus [HIV] disease; I10 Essential (primary) hypertension; K66.0 Peritoneal adhesions (postprocedural) (postinfection)
CPT/HCPCS: 88304-TC; 94760

== ENCOUNTER 2018-02-09 07:47 | Emergency (ER) | payer OTHER ==
[2018-02-09 08:11] VITALS: BMI 31.4
--- NOTE | 2018-02-09 08:22 | PDOC ---
History of Present Illness - General Chief Complaint: Respiratory Stated Complaint: SOB/COUGH Time Seen by Provider: 02/09/18 08:15 Past History - Past Medical History Allergies/Adverse Reactions: Allergies Allergy/AdvReac Type Severity Reaction Status Date / Time No Known Allergies Allergy Verified 02/09/18 08:02 Home Medications: Ambulatory Orders Gabapentin [Neurontin -] 300 mg PO Q8H 07/11/16 Losartan/Hydrochlorothiazide [Losartan-Hctz 100-25 mg Tab] 1 each PO DAILY 07/11 Zolpidem Tartrate [Ambien] 10 mg PO HS 07/11/16 Bictegrav/Emtricit/Tenofov Ala [Biktarvy 50-200-25 mg Tablet] 1 each PO DAILY Anemia: No Asthma: No Cancer: No Cardiac Disorders: No CVA: No COPD: No CHF: No Dementia: No Diabetes: No GI Disorders: No Disorders: No HTN: Yes Hypercholesterolemia: No Kidney Stones: Yes Liver Disease: No Seizures: No Thyroid Disease: No - Immunization History Immunization Up to Date: Yes - Suicide/Smoking/Psychosocial Hx Smoking History: Current some day smoker Number of Cigarettes Smoked Daily: 3 Information on smoking cessation initiated: Yes 'Breaking Loose' booklet given: 02/09/18 Hx Alcohol Use: No Drug/Substance Use Hx: No Substance Use Type: None Hx Substance Use Treatment: No Review of Systems - Review of Systems Comments:: Constitutional: no fever, +chills HEENT: +nasal congestion, no throat pain Cardiovascular: no chest pain, no palpitations Respiratory: +cough, +shortness of breath Gastrointestinal: no abdominal pain, no nausea, no vomiting, no diarrhea, no constipation Genitourinary: no dysuria, no frequency Musculoskeletal: no myalgia, no arthralgia Skin: no rash, no itching Neurologic: +headache, no dizziness *Physical Exam - Vital Signs Last Vital Signs Temp Pulse Resp BP Pulse Ox 97.9 F 80 16 107/63 100 02/09/18 08:02 02/09/18 08:02 02/09/18 08:02 02/09/18 08:02 02/09/18 08:02 - Physical Exam Comments: General: Wake, alert, and fully oriented Head: no signs of trauma Eyes: EOMI, sclera anicteric ENT: Moist mucus membranes Neck: Normal ROM, supple Lungs: Diffuse rales present bilaterally Cardio: Regular rhythm, S1 and S2 present, no murmurs, rubs, or gallops Abdomen: Soft, nontender Extremities: Normal range of motion, Distal pulses present. No cords or tenderness SKIN: Warm, Dry, normal turgor, no rashes or lesions noted Neurologic: Cranial nerves II through XII grossly intact. Normal speech Medical Decision Making - Medical Decision Making 67yo F with history of HIV (last CD4~ 1004 about a month ago) presenting with cough since Friday. -CXR -Duoneb 1 amp: Patient feeling better after treatment, another neb ordered 02/09/18 09:49 CXR shows no acute pathology (per radiologist report) 02/09/18 10:01 *DC/Admit/Observation/Transfer Diagnosis at time of Disposition: Cough - Discharge Dispostion Disposition: HOME Condition at time of disposition: Improved - Referrals Referrals: Kendra Petty [Primary Care Provider] - - Patient Instructions Printed Discharge Instructions: DI for Viral Upper Respiratory Infection -- Adult Additional Instructions: You were seen in the emergency department for a cough and shortness of breath. You received breathing treatments which improved your symptoms. Use your inhaler every 4-6 hours for the next two days. Follow-up with a primary care doctor this week to discuss this ED visit and to further evaluate your symptoms. Call and make an appointment. Immediate medical attention is required if you experience: Difficulty breathing, unrelieved by medications Tightness in chest, unrelieved by medications Fever Productive sputum Chest pain If you think you have an emergency, call for medical help right away. - Post Discharge Activity
--- NOTE | 2018-02-09 08:52 | PDOC ---
Attending Attestation - Resident Resident Name: Nida Price - ED Attending Attestation I have performed the following: I have examined & evaluated the patient, The case was reviewed & discussed with the resident, I agree w/resident's findings & plan, Exceptions are as noted - HPI HPI: 02/09/18 10:08 67 years old past medical history significant for hypertension, HIV on heart compliant with therapy normal CD4 count with nondetectable viral load presents emergency department with 4 day history of nasal congestion sinus pressure postnasal drip and dry nonproductive cough. Symptoms are moderate worse at night no associated documented fever although patient did say she feels a little bit warm No chest pain no shortness of breath no dyspnea on exertion - Physicial Exam PE: 02/09/18 10:08 Vitals: Triage Vital signs reviewed General Appearance: no acute distress, well nourished well developed, Head: Atraumatic, Nose: Nares patent bilaterally;+ nasal congestion Throat: Posterior oropharynx without erythema, mucous membranes moist, Neck: Supple;No Nucal rigidity Chest Wall: Nontender Cardiac: Regular rate and rhythym, no murmurs, no rubs, no gallops, Lungs: Clear to auscultation bilateral, good air movement bilaterally, Extremities: Full range of motion to all extremities, no cyanosis, clubbing, or edema Skin: Warm and dry, no rashes or lesions, no rash, no petechiae Psych: normal mood, normal affect - Medical Decision Making 02/09/18 10:09 67 years old history and examination consistent with upper respiratory infection complicated by reactive airway disease Status post to Combineb's in the emergency department patient feels much better at time of my evaluation her respiratory examination was clear she was in no respiratory distress. Patient feels much better is asking to go home. Has a Ventolin pump at home she will use this every 4-6 hours she'll follow-up with her doctor in 2 days
[2018-02-09] MEDS ORDERED: ALBUTEROL SO4 2.5/IPRATROPIUM 0.5 INH SOL 3 ML VIAL.NEB. NEB ONE ×3 (09:00→09:23)
[2018-02-09 10:05] VITALS: BP 120/80; PULSE 79; TEMP 97.6
== END 2018-02-09 10:25 | disposition home or self-care (01) ==
LOC: JER 07:47
PROC: 3E0F7GC Introduction of Other Therapeutic Substance into Respiratory Tract, Via Natural or Artificial Opening (ICD-10-PCS; principal; 2018-02-09)
PROC: 3E0F7GC Introduction of Other Therapeutic Substance into Respiratory Tract, Via Natural or Artificial Opening (ICD-10-PCS; 2018-02-09)
DX: J06.9 Acute upper respiratory infection, unspecified (principal); B97.89 Other viral agents as the cause of diseases classified elsewhere; I10 Essential (primary) hypertension; Z21 Asymptomatic human immunodeficiency virus [HIV] infection status; Z87.442 Personal history of urinary calculi
CPT/HCPCS: 71046-TC-FY; 94640; 99281-25